=== PATIENT | male | born 1975 | race Caucasian/White ===

== ENCOUNTER 2018-06-17 10:23 | Day surgery (SDC) | payer OTHER, SELFPAY ==
[2018-06-13 11:02] VITALS: BMI 23.7
[2018-06-17 10:57] VITALS: BP 118/74; PULSE 62; RESP 16; TEMP 36.7; O2SAT 99; BMI 23.7
--- NOTE | 2018-06-17 11:21 | PM.PREOP ---
Pre-operative Note Interval Note Pre-op Check: Yes History & Physical Reviewed by Physician and Yes Exam Performed Changes: No
[2018-06-17] MEDS: LACTATED RINGERS 1,000 ML 42 ML IV (12:15)
[2018-06-17] MEDS: CEFAZOLIN 2 GM/100 ML FROZ.PIGGY IV (13:04)
--- NOTE | 2018-06-17 13:26 | SUR.OPER ---
Supine on padded OR bed, head on pillow, arms secured on padded arm boards at <90 degrees abduction, legs uncrossed, safety belt at thigh, tape over blanket over LEFT lower leg, RIGHT HIP ROLL.
[2018-06-17] MEDS: BUPIVACAINE 0.5% (PF) VIAL 30 ML INJ (13:34)
[2018-06-17 14:20] VITALS: BP 117/59; PULSE 65; RESP 11; TEMP 36.8; O2SAT 96
[2018-06-17 14:25] VITALS: BP 118/51; PULSE 68; RESP 16; O2SAT 97
[2018-06-17 14:30] VITALS: BP 117/62; PULSE 58; RESP 17; TEMP 36.9; O2SAT 97
--- NOTE | 2018-06-17 14:33 | PM.OP.1 ---
Operative Date/Time/Diagnoses Date of procedure: 06/17/18 Time of procedure: 13:00 Pre-op diagnosis: 1. Laceration right extensor hallucis longus tendon, ICD10 S96.121A 2. Traumatic laceration to foot due to axe Post-op diagnosis: same Procedure & Clinicians Procedure: 1. Repair, tendon, foot right, using suture, extensor hallucis longus tendon. CPT code 30789 2. Wound exploration right foot CPT code 43222 3. Repair and closure traumatic laceration, intermediate 2.6-7.5 cm, right cpt code 23083 Same procedure as scheduled: Yes Indications: The patient is a 42-year-old male that was chopping wood on 06/08/2018 when he accidentally sustained a ax injury to the dorsum of his right foot. He was seen in the emergency room at [facility] where his wound was irrigated and sutured. Patient was noted to have a suspected laceration of his extensor hallucis longus tendon. Patient has been nonweightbearing in a boot and was given tetanus and Keflex at the emergency room. The patient has been indicated for exploration of his dorsal right foot wound and repair of structures as indicated and operative repair of his traumatic laceration. The risks and benefits of the procedure have been discussed with the patient even opportunity to ask questions. The risks of surgery include but are not limited to infection, malunion, nonunion, persistence of pain, damage to nerves and blood vessels, posttraumatic arthritis, DVT, PE, cardiopulmonary complications and . The patient expressed a thorough understanding of the risks and benefits of surgery and has elected to proceed. Consent was signed in the office. Surgeon: Trice Leon Click Yes if Unassisted: Yes Anesthesia Type: General and Local Operative Notes Findings: Dorsal oblique laceration over the proximal 1st metatarsal to the 2nd metatarsal base. Upon removing sutures from the emergency room the wound is not healed in goes immediately deep to the level of the dorsal 1st metatarsal bone. There is a small divot in the dorsal cortex at this location but no evidence of complete fracture. There is a moderate amount of hematoma. With extension of the laceration proximally and distally in a lazy-S or Z fashion the ends of the extensor hallucis longus tendon are located. There has been a complete laceration of the extensor hallucis longus with approximately 3 cm of retraction approximately. This was repaired with a 2 0 FiberWire in a modified Moe stitch Closure Type: primary Specimen(s): none sent Applied: other (Splint) Estimated Blood Loss (mL): 5 Blood products transfused: none Tourniquet time (min): 36 Procedure in detail: The patient was seen in the preoperative area site and site of surgery marked and informed consent confirmed. The patient was then brought to the operating room by the anesthesia team. The patient was positioned supine on the operative table and general anesthesia was administered. Bony prominences were well padded. Well-padded thigh tourniquet was placed. And the thigh bump. The right lower extremity was prepped and draped in the standard sterile fashion and A formal time-out procedure was performed confirming the patient's site side of surgery and administration of preoperative antibiotics within 30 min of incision. All were in agreement. An Esmarch was utilized for exsanguination and the tourniquet raised to 250 mm of mercury and stayed there for approximately 36 min. The oblique dorsal wound was opened and previous placed stitches removed. Gentle dissection immediately went down to the level of the bone over the proximal 1st metatarsal and then into the 1st 2nd web space and over the base of the 2nd metatarsal. EHL tendon was not initially visualized. Wound was then extended distally and proximally in a lazy-S fashion over the projected course of the EHL tendon. Approximately 1 cm distal to the incision the distal stump of EHL was found within its sheath. This was completely ruptured. The proximal aspect of the EHL tendon was also located approximately 3 cm proximal to the laceration. This was exposed and the ends freshened. Remainder of the wound was explored. Hematoma was evacuated. Dorsal branches of the superficial peroneal nerve were visualized in the wound and intact however at distal branches on did appear to have some crushing at the direct location of the laceration. No other tendinous injury was noted. There were no complete fractures and joints appeared stable. Wound was then thoroughly irrigated with saline. Ankle dorsiflexed and the great toe placed in mild extension. The tagged proximal and distal ends of the EHL tendon were brought together noted to be able to be repaired without significant tension. Therefore a 2 0 FiberWire stay stitch was placed in a modified Moe fashion approximating the tendon ends. This was oversewn with 3 0 Vicryl as well. Tendon sheath was able to be closed distally and proximally to the repair but there was no peritenon for repair at the level of the repair. The tourniquet was released and hemostasis achieved. This was closed over with a subcutaneous tissue in layered fashion using a 2 0 PDS deep. 4 0 Monocryl subcutaneously and 4 O nylon in the skin. The traumatic laceration was approximately 3 cm in an oblique fashion and this was lengthened on either into a incision of approximately 7 cm in length total. 15 cc of Marcaine was injected for local anesthesia. Sterile dressing was placed. The patient was placed into a posterior splint in dorsiflexion with the toe slightly extended. The patient was then taken the PACU in good condition. There were no immediate complications from this procedure. Complications: none Condition: stable Disposition: PACU Plan for aftercare: Patient will be nonweightbearing in a splint for the next 3 weeks. Sutures removed at 3 weeks and patient will be placed into a boot and progressive weight-bearing at that point. We will hold off on passive range of motion until least 6 weeks postoperatively to protect the repair. Patient will utilize 325 mg of aspirin daily for DVT prophylaxis while he is nonweightbearing.
--- NOTE | 2018-06-17 14:38 | P.OP_ITS ---
Operative Date/Time/Diagnoses Date of procedure: 06/17/18 Time of procedure: 13:00 Pre-op diagnosis: 1. Laceration right extensor hallucis longus tendon, ICD10 S96.121A 2. Traumatic laceration to foot due to axe Post-op diagnosis: same Procedure & Clinicians Procedure: 1. Repair, tendon, foot right, using suture, extensor hallucis longus tendon. CPT code 54934 2. Wound exploration right foot CPT code 16393 3. Repair and closure traumatic laceration, intermediate 2.6-7.5 cm, right cpt code 08384 Same procedure as scheduled: Yes Indications: The patient is a 42-year-old male that was chopping wood on 2017 when he accidentally sustained a ax injury to the dorsum of his right foot. He was seen in the emergency room at [facility] where his wound was irrigated and sutured. Patient was noted to have a suspected laceration of his extensor hallucis longus tendon. Patient has been nonweightbearing in a boot and was given tetanus and Keflex at the emergency room. The patient has been indicated for exploration of his dorsal right foot wound and repair of structures as indicated and operative repair of his traumatic laceration. The risks and benefits of the procedure have been discussed with the patient even opportunity to ask questions. The risks of surgery include but are not limited to infection, malunion, nonunion, persistence of pain, damage to nerves and blood vessels, posttraumatic arthritis, DVT, PE, cardiopulmonary complications and . The patient expressed a thorough understanding of the risks and benefits of surgery and has elected to proceed. Consent was signed in the office. Surgeon: Trice Leon Click Yes if Unassisted: Yes Anesthesia Type: General and Local Operative Notes Findings: Dorsal oblique laceration over the proximal 1st metatarsal to the 2nd metatarsal base. Upon removing sutures from the emergency room the wound is not healed in goes immediately deep to the level of the dorsal 1st metatarsal bone. There is a small divot in the dorsal cortex at this location but no evidence of complete fracture. There is a moderate amount of hematoma. With extension of the laceration proximally and distally in a lazy-S or Z fashion the ends of the extensor hallucis longus tendon are located. There has been a complete laceration of the extensor hallucis longus with approximately 3 cm of retraction approximately. This was repaired with a 2 0 FiberWire in a modified Moe stitch Closure Type: primary Specimen(s): none sent Applied: other (Splint) Estimated Blood Loss (mL): 5 Blood products transfused: none Tourniquet time (min): 36 Procedure in detail: The patient was seen in the preoperative area site and site of surgery marked and informed consent confirmed. The patient was then brought to the operating room by the anesthesia team. The patient was positioned supine on the operative table and general anesthesia was administered. Bony prominences were well padded. Well-padded thigh tourniquet was placed. And the thigh bump. The right lower extremity was prepped and draped in the standard sterile fashion and A formal time-out procedure was performed confirming the patient's site side of surgery and administration of preoperative antibiotics within 30 min of incision. All were in agreement. An Esmarch was utilized for exsanguination and the tourniquet raised to 250 mm of mercury and stayed there for approximately 36 min. The oblique dorsal wound was opened and previous placed stitches removed. Gentle dissection immediately went down to the level of the bone over the proximal 1st metatarsal and then into the 1st 2nd web space and over the base of the 2nd metatarsal. EHL tendon was not initially visualized. Wound was then extended distally and proximally in a lazy-S fashion over the projected course of the EHL tendon. Approximately 1 cm distal to the incision the distal stump of EHL was found within its sheath. This was completely ruptured. The proximal aspect of the EHL tendon was also located approximately 3 cm proximal to the laceration. This was exposed and the ends freshened. Remainder of the wound was explored. Hematoma was evacuated. Dorsal branches of the superficial peroneal nerve were visualized in the wound and intact however at distal branches on did appear to have some crushing at the direct location of the laceration. No other tendinous injury was noted. There were no complete fractures and joints appeared stable. Wound was then thoroughly irrigated with saline. Ankle dorsiflexed and the great toe placed in mild extension. The tagged proximal and distal ends of the EHL tendon were brought together noted to be able to be repaired without significant tension. Therefore a 2 0 FiberWire stay stitch was placed in a modified Moe fashion approximating the tendon ends. This was oversewn with 3 0 Vicryl as well. Tendon sheath was able to be closed distally and proximally to the repair but there was no peritenon for repair at the level of the repair. The tourniquet was released and hemostasis achieved. This was closed over with a subcutaneous tissue in layered fashion using a 2 0 PDS deep. 4 0 Monocryl subcutaneously and 4 O nylon in the skin. The traumatic laceration was approximately 3 cm in an oblique fashion and this was lengthened on either into a incision of approximately 7 cm in length total. 15 cc of Marcaine was injected for local anesthesia. Sterile dressing was placed. The patient was placed into a posterior splint in dorsiflexion with the toe slightly extended. The patient was then taken the PACU in good condition. There were no immediate complications from this procedure. Complications: none Condition: stable Disposition: PACU Plan for aftercare: Patient will be nonweightbearing in a splint for the next 3 weeks. Sutures removed at 3 weeks and patient will be placed into a boot and progressive weight-bearing at that point. We will hold off on passive range of motion until least 6 weeks postoperatively to protect the repair. Patient will utilize 325 mg of aspirin daily for DVT prophylaxis while he is nonweightbearing.
[2018-06-17 14:45] VITALS: BP 115/71; PULSE 57; RESP 11; TEMP 36.9; O2SAT 97
[2018-06-17] MEDS: HYDROCODONE/ACET 5/325 TABLET 1 TAB PO (14:54)
[2018-06-17 17:11] VITALS: BP 124/73; PULSE 64; TEMP 36.1; O2SAT 100
== END 2018-06-17 15:20 | disposition home or self-care (01) ==
PROVIDERS: PCP Family Medicine; Visit Provider Orthopaedic Surgery Foot and Ankle Surgery
PROC: (CPT 28200; principal; 2018-06-17 11:45)
DX: S96.121A Laceration of muscle and tendon of long extensor muscle of toe at ankle and foot level, right foot, initial encounter (principal); W27.0XXA Contact with workbench tool, initial encounter
CPT/HCPCS: 28200; J0690; J1100; J1885; J2250; J2405; J2704; J3010

== ENCOUNTER → 2019-02-12 16:25 | Outpatient (CLI) | payer OTHER, SELFPAY ==
[2019-02-12 17:00] LABS: Add Manual Diff / Slide Review NO; Basophils Absolute Auto 100 /uL (0-100); Basophils Percent Auto 1.7 % (0-2); Eosinophils Absolute Auto 100 /uL (0-450); Eosinophils Percent Auto 1.1 % (2-4); Lymphocytes Absolute Auto 1500 /uL (1100-4500); Lymphocytes Percent Auto 26.4 % (25-40); Mean Corpuscular Hemoglobin 29.6 PG (26-34); Mean Corpuscular Volume 87.1 fL (80-100); Monocytes Absolute Auto 500 /uL (0-900); Monocytes Percent Auto 8.1 % (3-14); Neutrophils Absolute Auto 3600 /uL (1500-7000); Neutrophils Percent Auto 62.7 % (50-75); Platelet Count 239 X10^3/uL (150-400); Red Cell Distribution Width 12.2 % (11.6-14.8); White Blood Cell Count 5.8 X10^3/uL (4.5-11.0)
[2019-02-12 17:16] LABS: Alanine Aminotransferase 130 IU/L (21-72); Albumin 4.8 g/dL (3.5-5.0); Albumin Globulin Ratio 1.8 (1.0-2.8); Alkaline Phosphatase 68 U/L (38-126); Aspartate Aminotransferase 48 IU/L (17-59); BUN Creatinine Ratio 22.2 (6-22); Bilirubin Total 1.1 mg/dL (0.2-1.3); Blood Urea Nitrogen 20 mg/dL (9-20); Calcium 11.2 mg/dL (8.4-10.2); Carbon Dioxide 25 mmol/L (22-32); Chloride 101 mmol/L (98-107); Estimated Glomerular Filt Rate > 60.0 mL/min (>60); Globulin 2.7 g/dL (1.7-4.1); Glucose 88 mg/dL (70-100); HEMOLYSIS < 15 (0-50); Potassium 4.5 mmol/L (3.4-5.1); Sodium 139 mmol/L (137-145); Total Protein 7.5 g/dL (6.3-8.2)
[2019-02-12 17:30] LABS: Hemoglobin A1C% w Est Avg Glu 5.5 % (4.0-6.0)
[2019-02-12 17:46] LABS: TSH w/ Reflex to FT4 1.71 uIU/mL (0.47-4.68)
== END ==
PROVIDERS: PCP Family Medicine; Visit Provider Family Medicine
DX: L29.9 Pruritus, unspecified (principal); Z83.3 Family history of diabetes mellitus
CPT/HCPCS: 36415; 80053; 83036; 84443; 85025

== ENCOUNTER → 2019-02-13 13:34 | Outpatient (CLI) | payer OTHER, SELFPAY ==
[2019-02-13 16:06] LABS: Hepatitis B Surface Antigen NEGATIVE s/c (NEGATIVE)
[2019-02-13 16:24] LABS: Hep C Virus Ab w/Reflex Quant NEGATIVE s/c (NEGATIVE)
[2019-02-16 06:39] LABS: Ionized Calcium 5.6 mg/dL (4.8-5.6)
[2019-02-18 08:43] LABS: Hepatitis B Core IgM Nonreactive (Nonreactive)
== END ==
PROVIDERS: PCP Family Medicine; Visit Provider Family Medicine
DX: R74.0 Nonspecific elevation of levels of transaminase and lactic acid dehydrogenase [LDH] (principal); E83.52 Hypercalcemia
CPT/HCPCS: 36415; 82330; 86705; 86803; 87340

== ENCOUNTER → 2019-04-02 16:36 | Outpatient (CLI) | payer OTHER, SELFPAY ==
[2019-04-02 17:59] LABS: Alanine Aminotransferase 44 IU/L (21-72); Albumin 4.5 g/dL (3.5-5.0); Alkaline Phosphatase 75 U/L (38-126); Aspartate Aminotransferase 38 IU/L (17-59); Bilirubin Total 0.5 mg/dL (0.2-1.3); Bilirubin Unconjugated 0.3 mg/dL (0.0-1.1); Globulin 2.3 g/dL (1.7-4.1); HEMOLYSIS < 15 (0-50); Total Protein 6.8 g/dL (6.3-8.2)
== END ==
PROVIDERS: Family Provider Family Medicine; PCP Family Medicine; Visit Provider Family Medicine
DX: R74.0 Nonspecific elevation of levels of transaminase and lactic acid dehydrogenase [LDH] (principal)
CPT/HCPCS: 36415; 80076

== ENCOUNTER 2021-03-02 19:07 | Emergency (ER) | payer OTHER, SELFPAY ==
--- NOTE | 2021-03-02 19:14 | ED.BACK ---
HPI - Back Pain/Injury <Diego Cho PA-C - Last Filed: 03/03/21 19:23> General Chief Complaint: Back Pain/Injury Stated Complaint: back pain Time Seen by Provider: 03/02/21 19:14 History of Present Illness HPI Narrative: Gage presents today with chief complaint of lower back pain. He reports that his symptoms started when he was picking up a car battery in his garage earlier this morning. He had an acute pain in his low back that did not radiate and had to sit down for while. Since then he has had significant difficulty with standing up, walking, or being in a single position for prolonged period of time. Pain seems to be better with laying flat on his back. He has tried ibuprofen at noon today but that did not give him significant relief. He has also tried a topical lidocaine patch which did not give him any relief. He has previous history of a similar injury that occurred 10 months ago. His doctor said that he may have a bulged disc which could be contributing to his symptoms. Was recommended to do physical therapy but did not complete any of the prescribed therapy due to cost concerns. He instead was doing range of motion activities at home. His symptoms appeared to have been improving until the event earlier today. He denies any fever, significant headache, numbness or tingling in his legs, loss of bowel or bladder function, urinary symptoms, constipation, diarrhea or any other acute concerns or complaints at this time. Related Data Previous Rx's Medication Instructions Recorded cetirizine 10 mg tablet 10 mg PO DAILY PRN #30 tab 02/12/19 triamcinolone acetonide 0.1 % 1 applictn TOP BID PRN #80 gram 02/12/19 topical ointment hydroxyzine HCl 25 mg tablet See Rx Instructions PO QID #60 tab 10/13/19 sertraline 100 mg tablet 100 mg PO DAILY #30 tab 11/16/19 meloxicam 15 mg tablet 15 mg PO DAILY #30 tab 09/16/20 sertraline 50 mg tablet See Rx Instructions PO DAILY #90 09/16/20 tab cyclobenzaprine 5 mg tablet 5 mg PO TID PRN #10 tab 03/02/21 hydrocodone 5 mg-acetaminophen 325 1 tab PO Q6H PRN #10 tab 03/02/21 mg tablet Allergies Allergy/AdvReac Type Severity Reaction Status Date / Time No Known Allergies Allergy Uncoded 10/19/19 14:01 Review of Systems <Diego Cho PA-C - Last Filed: 03/03/21 19:23> Review of Systems Narrative: As per HPI Patient History <Diego Cho PA-C - Last Filed: 03/03/21 19:23> Medical History (Updated 03/02/21 @ 22:50 by Arabella Phelps DO) Allergic rhinitis Laceration of foot involving extensor tendon Laceration of right extensor hallucis longus tendon Family History Father Age: 70 Hypertension Grandfather Age: 90 Skin cancer Hypertension Diabetes mellitus Grandmother Age: 87 Hypertension Stroke Grandfather Heart attack Social History household members: spouse and children Smoking Status: Never smoker Smoking Status: Never smoker Exam <Diego Cho PA-C - Last Filed: 03/03/21 19:23> Narrative Exam Narrative: Exam Narrative: Const General: cooperative, healthy appearing, comfortable, no acute distress, well developed and well groomed Nutritional Appearance: average body habitus Orientation: alert and oriented x3 HENMT Head: normal to inspection and atraumatic Ears: hearing grossly normal bilaterally Nose: external nose normal and nares normal Face and sinus: normal facial exam Neck Neck: normal visual inspection and supple Resp Effort & Inspection: normal respiratory effort, able to speak in complete sentences, no audible wheezes, not labored, no nasal flaring and no respiratory distress Neuro General: alert, oriented x3, tone normal and moves all extremities, no sensory deficits noted in lower extremities, patellar DTRs 2+ bilaterally Cognition: normal cognition Speech: speech normal GI Nondistended, normal bowel sounds, no tenderness with palpation. Skin No rash or lesions noted. Psych Appearance: grossly normal and well kempt Mental Status: mental status grossly normal Speech and Movement: speech and movement normal Mood: congruent mood Affect: normal affect Initial Vital Signs Initial Vital Signs: Vital Signs Temperature 98.6 F 03/02/21 19:17 Pulse Rate 55 L 03/02/21 19:17 Respiratory Rate 18 03/02/21 19:17 Blood Pressure 128/62 03/02/21 19:17 Pulse Oximetry 99 03/02/21 19:17 <Arabella Phelps DO - Last Filed: 03/03/21 03:28> Initial Vital Signs Initial Vital Signs: Vital Signs Temperature 98.6 F 03/02/21 19:17 Pulse Rate 55 L 03/02/21 19:17 Respiratory Rate 18 03/02/21 19:17 Blood Pressure 128/62 03/02/21 19:17 Pulse Oximetry 99 03/02/21 19:17 Course <Diego Cho PA-C - Last Filed: 03/03/21 19:23> Orders Ordered: Discontinued Medications Hydrocodone Bitart/Acetaminophen (Hydrocodone/Acet 5/325 Prepack) 1 bottle MISC SEEINSTR ONE Stop: 03/02/21 22:54 Last Admin: 03/02/21 23:08 Dose: 1 bottle Documented by: BLAS Cyclobenzaprine HCl (Cyclobenzaprine 10 Mg Tablet) 10 mg PO NOW ONE Stop: 03/02/21 19:23 Last Admin: 03/02/21 19:42 Dose: 10 mg Documented by: BLAS Cyclobenzaprine HCl (Cyclobenzaprine 10 Mg Prepack) 1 bottle MISC SEEINSTR ONE Stop: 03/02/21 22:54 Last Admin: 03/02/21 23:08 Dose: 1 bottle Documented by: BLAS Ketorolac Tromethamine (Ketorolac 30 Mg/Ml Vial) 30 mg IM NOW ONE Stop: 03/02/21 19:23 Last Admin: 03/02/21 19:42 Dose: 30 mg Documented by: BLAS Vital Signs Vital signs: Vital Signs - 8 hr 03/02/21 19:17 Temperature 98.6 F Pulse Rate 55 L Respiratory Rate 18 Blood Pressure 128/62 Pulse Oximetry 99 <Arabella Phelps DO - Last Filed: 03/03/21 03:28> Orders Ordered: Discontinued Medications Hydrocodone Bitart/Acetaminophen (Hydrocodone/Acet 5/325 Prepack) 1 bottle MISC SEEINSTR ONE Stop: 03/02/21 22:54 Last Admin: 03/02/21 23:08 Dose: 1 bottle Documented by: BLAS Cyclobenzaprine HCl (Cyclobenzaprine 10 Mg Tablet) 10 mg PO NOW ONE Stop: 03/02/21 19:23 Last Admin: 03/02/21 19:42 Dose: 10 mg Documented by: BLAS Cyclobenzaprine HCl (Cyclobenzaprine 10 Mg Prepack) 1 bottle MISC SEEINSTR ONE Stop: 03/02/21 22:54 Last Admin: 03/02/21 23:08 Dose: 1 bottle Documented by: BLAS Ketorolac Tromethamine (Ketorolac 30 Mg/Ml Vial) 30 mg IM NOW ONE Stop: 03/02/21 19:23 Last Admin: 03/02/21 19:42 Dose: 30 mg Documented by: BLAS Vital Signs Vital signs: Vital Signs - 8 hr 03/02/21 19:17 Temperature 98.6 F Pulse Rate 55 L Respiratory Rate 18 Blood Pressure 128/62 Pulse Oximetry 99 <Arabella Lenin, DO - Last Filed: 03/03/21 03:28> Imaging Data Extremity x-ray #1: Radiologist's Impression: PROCEDURE: XR LUMBAR SPINE 2-3V INDICATIONS: low back pain TECHNIQUE: 3 views of the lumbar spine were acquired. COMPARISON: None. FINDINGS: Bones: 5 [id number] vertebrae are present. There is normal bony alignment. No vertebral body compression fractures. No suspicious bony lesions. There are mild degenerative changes. Soft tissues: Overlying bowel gas pattern is normal. No suspicious soft tissue calcifications. IMPRESSION: No acute abnormality of the lumbar spine. Dictated by: Osmani Garcia M.D. on 03/02/2021 at 20:07 MDM Narrative Medical decision making narrative: Patient signed out to me by Diego ROMAN. I have seen and evaluated patient myself. He has had back issues off and on he has participated in physical therapy has helped. 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 He has no numbness tingling or weakness in his lower extremities no changes in bowel or bladder habits. X-ray is negative. He actually is able to roll over for me without any assistance while I palpate his back. He has had Toradol and Flexeril. At this time I see no need for any emergent need for MRI no sign of cauda equina is or epidural abscess he certainly has no risk factors. He states he still in significant pain although is moving a bit better. I have explained that his pain will not be completely controlled. He is given a prepack of his hydrocodone along with a prescription and Flexeril Discharge Plan Departure Patient Disposition: Home Clinical Impression: Acute exacerbation of chronic low back pain Discharge Date/Time: 03/02/21 23:29 Instructions: DI for Back Strain or Sprain Activity Restrictions/Additional Instructions: *You have been diagnosed with acute on chronic back pain *What to do: At this time I recommend light activity no strenuous activity, no heavy lifting. You may require outpatient MRI. And possible more physical to *Continue to take medications as directed Hydrocodone 1-2 tablets every 6 hours if needed for pain Motrin 800 mg every 8 hours with food as needed for [id number] Flexeril 5 mg every 8 hours if needed for muscle spasm *Follow up with your primary care provider in 2-3 days *Return to ER if you should have increasing weakness numbness or tingling in lower extremities changes in bowel or bladder habits or any new, worsening or concerning symptoms CONTROLLED SUBSTANCE DISCHARGE (Narcotoic/benzodiazepine/Flexeril/Phenergan) 1. You have been prescribed narcotic medications, it does have acetaminophen/Tylenol/paracetamol in it, DO NOT TAKE MORE THAN 4,00mg in 24 hours of Tylenol. TRAMADOL DOES NOT CONTAIN TYLENOL 2. Please understand that we cannot provide further refills of narcotics, benzodiazepines or controlled substances through the ED and her pain management will need to be through your provider. 3. While on these medications you cannot drive or operate heavy machinery. 4. You cannot sign legal documents or perform any duties such as this. 5. As long as you're taking opiate pain medications he should also be taking a stool softener such as Colace, Dulcolax, MiraLAX or prune juice, to help avoid constipation. Prescriptions: New hydrocodone-acetaminophen 5-325 mg tablet 1 tab PO Q6H PRN (Reason: pain) Qty: 10 RF: 0 cyclobenzaprine 5 mg tablet 5 mg PO TID PRN (Reason: muscle spasm) Qty: 10 RF: 0 No Action cetirizine 10 mg tablet 10 mg PO DAILY PRN (Reason: itching) Qty: 30 RF: 12 triamcinolone acetonide 0.1 % ointment 1 applictn TOP BID PRN (Reason: uitching) Qty: 80 RF: 0 sertraline 50 mg tablet See Rx Instructions PO DAILY Qty: 90 RF: 2 meloxicam 15 mg tablet 15 mg PO DAILY Qty: 30 RF: 2 hydroxyzine HCl 25 mg tablet See Rx Instructions PO QID Qty: 60 RF: 0 sertraline 100 mg tablet 100 mg PO DAILY Qty: 30 RF: 0 Referrals: Kyleigh Martinez MD [Primary Care Provider] -
[2021-03-02 19:17] VITALS: BP 128/62; PULSE 55; RESP 18; TEMP 37; O2SAT 99; BMI 24.4
--- NOTE | 2021-03-02 19:21 | DI.RAD.S_ITS ---
PROCEDURE: XR LUMBAR SPINE 2-3V INDICATIONS: low back pain TECHNIQUE: 3 views of the lumbar spine were acquired. COMPARISON: None. FINDINGS: Bones: 5 [id number] vertebrae are present. There is normal bony alignment. No vertebral body compression fractures. No suspicious bony lesions. There are mild degenerative changes. Soft tissues: Overlying bowel gas pattern is normal. No suspicious soft tissue calcifications. IMPRESSION: No acute abnormality of the lumbar spine. Dictated by: Osmani Garcia M.D. on 03/02/2021 at 20:07 Approved by: Osmani Garcia M.D. on 03/02/2021 at 20:08
[2021-03-02] MEDS: KETOROLAC 30 MG/ML VIAL IM (19:42)
[2021-03-02] MEDS: CYCLOBENZAPRINE 10 MG TABLET PO (19:42)
[2021-03-02] MEDS: HYDROCODONE/ACET 5/325 PREPACK 1 BOTTLE MISC (23:08)
[2021-03-02] MEDS: CYCLOBENZAPRINE 10 MG PREPACK 1 BOTTLE MISC (23:08)
== END 2021-03-02 23:29 | disposition home or self-care (01) ==
PROVIDERS: Emergency Provider Emergency Medicine; Family Provider Family Medicine; PCP Family Medicine
DX: M54.5 Low back pain (principal)
CPT/HCPCS: 72100; 96372; 99283; 99284; J1885

== ENCOUNTER → 2021-03-22 17:45 | Outpatient (CLI) | payer OTHER, SELFPAY ==
--- NOTE | 2021-03-22 17:47 | DI.MRI.S_ITS ---
PROCEDURE: MR LUMBAR SPINE WO CON INDICATIONS: Low back pain TECHNIQUE: Noncontrast sagittal T1 spin echo and T2 fast echo, sagittal STIR, axial T1 and T2 fast spin echo through the lumbar spine. In cases with scoliosis, additional coronal T2 fast spin echo may be performed. COMPARISON: [facility], CR, XR LUMBAR SPINE 2-3V, 03/02/2021, 19:22. FINDINGS: Image quality: Excellent. Alignment and Curvature: There is normal bony alignment. Bone Marrow: Marrow is of normal overall signal. No acute vertebral body compression fractures. Spinal Cord: Conus medullaris terminates at the L1 level. Visualized cord demonstrates normal signal and size. Paraspinous Soft Tissues: No paravertebral masses. T12-L1: Normal appearance. L1-L2: Mild loss of disc height is seen. Loss of disc signal is seen. Minimal disc bulge is seen. No significant neural foraminal or central canal narrowing can be seen. L2-L3: No significant abnormality is seen. L3-L4: The disc height and disc signal are relatively well preserved. There is uraf-ab-sspcnnub left-sided and no significant right-sided neural foraminal narrowing seen. Minimal central canal narrowing is seen. L4-L5: Mild loss of disc height is seen. Loss of disc signal is seen. Moderate disc bulge is seen, with a mild central disc extrusion, with inferior migration of the disc material, as on series 4, image 27 and on series 2 image 8. Mild to moderate facet hypertrophy can be seen at this level. There is at least moderate right-sided and [id number]-vp-wamxcywn left-sided neural foraminal narrowing seen. Moderate central canal narrowing is seen. L5-S1: Mild loss of disc height is seen. Loss of disc signal is seen. Minimal to mild disc bulge is seen. There is a mild central disc protrusion. There is mild facet hypertrophy seen. No significant neural foraminal or central canal narrowing can be seen. IMPRESSION: Lumbar spine degenerative changes are seen, which are worst at the L4-L5 level. Dictated by: Kwaku Aquino M.D. on 03/22/2021 at 17:35 Approved by: Kwaku Aquino M.D. on 03/22/2021 at 17:38
== END ==
PROVIDERS: Family Provider Family Medicine; PCP Family Medicine; Referring Provider Family Medicine; Visit Provider Family Medicine
DX: M54.40 Lumbago with sciatica, unspecified side (principal); M47.816 Spondylosis without myelopathy or radiculopathy, lumbar region; G89.29 Other chronic pain
CPT/HCPCS: 72148

== ENCOUNTER → 2022-07-26 12:18 | Outpatient (CLI) | payer OTHER, SELFPAY ==
[2022-07-27 16:12] LABS: Interpretation Negative (Negative)
== END ==
PROVIDERS: Family Provider Family Medicine; PCP Family Medicine; Referring Provider Family Medicine; Visit Provider Family Medicine
DX: R10.13 Epigastric pain (principal)
CPT/HCPCS: 83013

== ENCOUNTER 2023-01-17 09:04 | Day surgery (SDC) | payer OTHER, SELFPAY ==
--- NOTE | 2023-01-17 | PATH_ITS ---
[facility] Accession Number: [id number] No. of containers..01 Tissue . 01 Material submitted: . colon - SIGMOID MUCOSA . 01 Diagnosis: Sigmoid Colon Mucosa, Biopsy: Colonic mucosa with nonspecific hemorrhage and congestion. Negative for active or microscopic colitis. Negative for granulomas, dysplasia or malignancy. V 01/23/2023 1318 Local . 01 Electronically signed: . Fili Bui MD, PhD, Pathologist NPI- [id number] . 01 Gross description: . SIGMOID MUCOSA: Received in formalin is multiple fragment(s) of tena, soft tissue measuring 0.5 x 0.2 x 0.2 cm in aggregate submitted entirely in 1 cassette(s) /TRC 01/22/2023 1136 Local . 01 Pathologist provided ICD-10: Z12.11, R19.4 . 01 CPT . 900698 Specimen Comment: A courtesy copy of this report has been sent to [phone] Performed at: 01 [facility] [address] [place] [address], [place], [place] [id number] MD Jesús Taylor MD Phone: [phone]
[2023-01-17 09:17] VITALS: BP 123/87; PULSE 61; RESP 17; TEMP 36.4; O2SAT 99; BMI 24.4
[2023-01-17] MEDS: LACTATED RINGERS 1,000 ML 42 ML IV (09:33)
--- NOTE | 2023-01-17 09:48 | P.HP_ITS ---
History of Present Illness History of Present Illness Date Patient Seen: 01/17/23 Time Patient Seen: 09:48 Chief complaint: SDC Narrative: Gage is a 47-year-old man who is here for his first screening colonoscopy. He has no melena or rectal bleeding. No first-degree relatives with colon cancer. [facility] Medical History (Updated 01/17/23 @ 09:49 by Po Moon MD) Allergic rhinitis Laceration of foot involving extensor tendon Laceration of right extensor hallucis longus tendon Family History Father Age: 72 Hypertension Grandfather Age: 92 Skin cancer Hypertension Diabetes mellitus Grandmother Age: 89 Hypertension Stroke Grandfather Heart attack Social History household members: spouse and children Smoking Status: Never smoker Meds Home Medications and Allergies Home Medications Medication Instructions Recorded Confirmed Type triamcinolone acetonide 0.1 % 1 applictn topical BID PRN 02/12/19 07/25/22 Rx topical ointment uitching #80 grams loratadine 10 mg tablet (Claritin) 10 mg PO DAILY 01/17/23 01/17/23 History Allergies Allergy/AdvReac Type Severity Reaction Status Date / Time No Known Allergies Allergy Uncoded 01/17/23 09:13 Exam Vital Signs (past 8 hours): - 01/17/23 09:17 Temperature 97.5 F L Pulse Rate 61 Respiratory Rate 17 Blood Pressure 123/87 Pulse Oximetry 99 Oxygen Delivery Method Room Air Oxygen Delivery Method Room Air Const General: healthy appearing Assessment & Plan Assessment and plan (1) Colon cancer screening: Status: Acute Plan We reviewed the risks and benefits of colonoscopy for colon cancer screening and he would like to proceed.
--- NOTE | 2023-01-17 10:38 | PM.OP.COLON ---
Operative Date/Time/Diagnoses Date of procedure: 01/17/23 Time of procedure: 10:38 Pre-op diagnosis: Colon cancer screening Post-op diagnosis: same Procedure & Clinicians Study performed: Colonoscopy Same procedure as scheduled: Yes Surgeon: Po Moon Procedure Notes Procedure in detail: Surgeon: Po Moon MD Anesthesia: Garett Cornelius CRNA Procedure: The patient was brought to the endoscopy suite, placed in left lateral decubitus position. The patient was connected to monitoring devices. A time-out was performed. Sedation was administered. Once the patient was adequately sedated, a digital rectal exam was performed and was normal. The scope was then inserted and advanced to the cecum where the appendiceal orifice was identified and photographed. The scope was then slowly withdrawn over greater than 6 minutes. The mucosa was thoroughly inspected. There was a patch of inflamed mucosa in the sigmoid colon, possibly from smoldering diverticulitis. Random biopsies were taken with the cold forceps. The rest of the colon was normal. The scope was retroflexed in the rectum. No other abnormalities were seen. The scope was straightened and removed. The patient was awakened and brought to recovery. Scope withdrawal time: 10 minutes Sedation time: 14 minutes EBL: 5 mL Findings: Patch of inflamed mucosa in the sigmoid colon suggestive of smoldering diverticulitis Post-procedure Disposition: PACU
[2023-01-17 10:41] VITALS: BP 97/59; PULSE 62; RESP 15; TEMP 35.8; O2SAT 98
[2023-01-17 10:46] VITALS: BP 109/78; PULSE 61; RESP 18; O2SAT 97
[2023-01-17 10:51] VITALS: BP 121/84; PULSE 66; RESP 15; O2SAT 96
[2023-01-17 10:52] VITALS: BP 115/79; PULSE 59; RESP 19; TEMP 36.5; O2SAT 98
== END 2023-01-17 11:00 | disposition home or self-care (01) ==
PROVIDERS: Family Provider Family Medicine; PCP Family Medicine; Referring Provider Surgery; Visit Provider Surgery
PROC: 0DJD8ZZ Inspection of Lower Intestinal Tract, Via Natural or Artificial Opening Endoscopic (ICD-10-PCS; CPT 45378; principal; 2023-01-17 10:00)
DX: Z12.11 Encounter for screening for malignant neoplasm of colon (principal); K57.92 Diverticulitis of intestine, part unspecified, without perforation or abscess without bleeding
CPT/HCPCS: 45380; J2704

== ENCOUNTER → 2025-01-11 11:58 | Outpatient (CLI) | payer OTHER, SELFPAY | PROVIDERS: Family Provider Family Medicine; PCP Family Medicine; Visit Provider Nurse Practitioner Family | DX: R30.0 Dysuria (principal) | CPT/HCPCS: 87086 ==

== ENCOUNTER → 2025-01-11 12:04 | Outpatient (CLI) | payer OTHER, SELFPAY ==
--- NOTE | 2025-01-11 12:05 | DI.RAD.S_ITS ---
PROCEDURE: XR ABDOMEN MIN 2V INDICATIONS: Possible constipation TECHNIQUE: 2 views of the abdomen were acquired. COMPARISON: None. FINDINGS: Surgical changes and devices: None. Bowel: No pneumoperitoneum. The bowel gas pattern is nonobstructive. Vfol-ti-htoflnra fecal stasis in the colon is seen. Soft tissues: No masses; visualized solid organ contours appear normal in size. No suspicious abdominal calcifications. Bones: No suspicious bony abnormalities. IMPRESSION: No evidence of bowel obstruction. No gross pneumoperitoneum. Qttn-bd-beriakhw fecal stasis in the colon which could indicate mild constipation. Dictated by: Shaka Newman M.D. on 01/11/2025 at 13:26 Approved by: Shaka Newman M.D. on 01/11/2025 at 13:28
== END ==
PROVIDERS: Family Provider Family Medicine; PCP Family Medicine; Referring Provider Nurse Practitioner Family; Visit Provider Nurse Practitioner Family
DX: K59.00 Constipation, unspecified (principal); R30.0 Dysuria
CPT/HCPCS: 74019; 87086